=== PATIENT | male | born 1985 | race Two or more races ===

== ENCOUNTER 2019-11-17 12:21 | Emergency (ER) | payer SELFPAY ==
[~2019-11-17] VITALS: Ht 167.6 cm; Wt 63.5 kg
[2019-11-17 12:22] VITALS: BP 121/63
[2019-11-17 14:01] VITALS: BP 100/66
--- NOTE | 2019-11-17 14:59 | Emergency Room Report ---
History of Present Illness General Chief Complaint: Alcohol Intoxication Source: EMS (Kings Muir MD) Present Illness HPI Patient is a 33-year-old male presents after increased altered mental status. Patient has been found lying in the street. Reportedly had recently been drinking alcohol heavily.Patient was brought in by EMS from the street. History is markedly limited by patient's mental status. No known recent trauma. 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 (Kings Muir MD) Patient History Past Medical History: see triage record Reviewed Nursing Documentation: PMH: Agreed; PSxH: Agreed (Kings Muir MD) Nursing Documentation-PMH Past Medical History: Deferred (Kings Muir MD) Review of Systems All Other Systems: negative except mentioned in HPI (Kings Muir MD) Physical Exam Vital Signs Date Time Temp Pulse Resp B/P (MAP) Pulse Ox O2 Delivery O2 Flow Rate FiO2 11/17/19 12:19 97.2 91 19 121/63 (82) 97 Room Air Sp02 EP Interpretation: reviewed, normal General Appearance: normal inspection, well appearing, no apparent distress, alert, GCS 15, non-toxic Head: atraumatic ENT: normal ENT inspection, hearing grossly normal, normal voice Neck: normal inspection, full range of motion, supple, no bony tend Respiratory: normal inspection, lungs clear, normal breath sounds, no respiratory distress, no retraction, no wheezing Cardiovascular #1: regular rate, rhythm, no edema Gastrointestinal: normal inspection, normal bowel sounds, non tender, soft, no guarding, no hernia Genitourinary: no CVA tenderness Musculoskeletal: normal inspection, back normal, normal range of motion Neurologic: alert, responsive, speech normal, normal inspection Psychiatric: normal inspection, judgement/insight normal, mood/affect normal (Kings Muir MD) Medical Decision Making Homeless Attestation Patient has been medically screened and is stable for outpatient follow up (Clement Galindo MD) Diagnostic Impression: Primary Impression: Acute alcoholic intoxication Additional Impression: Substance abuse ER Course Patient presented for altered mental status. Differential diagnosis include was not limited to alcohol tox occasion, overdose, electrolyte abnormality among others. Because of complexity of patient's case laboratory tests and imaging studies were ordered.I do not see any evidence of external trauma on the patient however given the patient's alteration of mental status laboratory testing and further imaging studies were ordered. CT imaging did not show any evidence of acute intracranial pathology. Patient was endorsed to Dr. Galindo pending sobering and (Kings Muir MD) ER Course Assumed care of the patient from the previous provider at approximately 1500. Please refer to initial note for full history and physical exam. Briefly, 33-year-old male brought in for altered mental status. Labs show elevated alcohol and positive urine screen for benzodiazepines and amphetamines. CT scan of the head unremarkable. Labs otherwise within normal limits. He has been monitored in the emergency department for approximately 7 hours. Patient is now awake, alert, ambulating with a steady gait. He has been given something to eat and drink. He is stable for outpatient follow-up. Will provide resources on substance abuse, alcohol abuse and nearby shelters to the patient. Laboratory Tests Test 11/17/19 14:40 11/17/19 15:16 White Blood Count 4.6 K/UL (4.8-10.8) L Red Blood Count 4.34 M/UL (4.70-6.10) L Hemoglobin 13.6 G/DL (14.2-18.0) L Hematocrit 40.4 % (42.0-52.0) L Mean Corpuscular Volume 93 FL (80-99) Mean Corpuscular Hemoglobin 31.4 PG (27.0-31.0) H Mean Corpuscular Hemoglobin Concent 33.7 G/DL (32.0-36.0) Red Cell Distribution Width 14.5 % (11.6-14.8) Platelet Count 215 K/UL (150-450) Mean Platelet Volume 6.3 FL (6.5-10.1) L Neutrophils (%) (Auto) 49.6 % (45.0-75.0) Lymphocytes (%) (Auto) 41.6 % (20.0-45.0) Monocytes (%) (Auto) 5.9 % (1.0-10.0) Eosinophils (%) (Auto) 1.1 % (0.0-3.0) Basophils (%) (Auto) 1.9 % (0.0-2.0) Sodium Level 145 MMOL/L (136-145) Potassium Level 3.7 MMOL/L (3.5-5.1) Chloride Level 106 MMOL/L (98-107) Carbon Dioxide Level 26 MMOL/L (21-32) Anion Gap 13 mmol/L (5-15) Blood Urea Nitrogen 4 mg/dL (7-18) L Creatinine 0.6 MG/DL (0.55-1.30) Estimated Glomerular Filtration Rate > 60 mL/min (>60) Glucose Level 151 MG/DL (74-106) H Calcium Level 8.3 MG/DL (8.5-10.1) L Total Bilirubin 0.4 MG/DL (0.2-1.0) Aspartate Amino Transferase (AST) 60 U/L (15-37) H Alanine Aminotransferase (ALT) 46 U/L (12-78) Alkaline Phosphatase 128 U/L (46-116) H Total Protein 7.4 G/DL (6.4-8.2) Albumin 3.3 G/DL (3.4-5.0) L Globulin 4.1 g/dL Albumin/Globulin Ratio 0.8 (1.0-2.7) L Salicylates Level 0.9 ug/mL (2.8-20) L Acetaminophen Level < 2 MCG/ML (10-30) L Serum Alcohol 352 mg/dL Urine Opiates Screen Negative (NEGATIVE) Urine Barbiturates Screen Negative (NEGATIVE) Phencyclidine (PCP) Screen Negative (NEGATIVE) Urine Amphetamines Screen Positive (NEGATIVE) H Urine Benzodiazepines Screen Positive (NEGATIVE) H Urine Cocaine Screen Negative (NEGATIVE) Urine Marijuana (THC) Screen Negative (NEGATIVE) (Clement Galindo MD) Last Vital Signs Date Time Temp Pulse Resp B/P (MAP) Pulse Ox O2 Delivery O2 Flow Rate FiO2 11/17/19 14:01 90 19 100/66 95 Room Air 11/17/19 12:22 97.2 (Kings Muir MD) Disposition: HOME, SELF-CARE Condition: Stable Scripts Folic Acid* (FOLIC ACID*) 1 Mg Tablet 1 MG ORAL DAILY, #30 TAB Prov: Clement Galindo MD 11/17/19 Thiamine Hcl* (VITAMIN B-1*) 100 Mg Tablet 100 MG ORAL DAILY, #30 TAB 0 Refills Prov: Clement Galindo MD 11/17/19 Referrals: NOT CHOSEN IPA/,REFERRING (PCP) Kings Muir MD Nov 17, 2019 14:59 Clement Galindo MD Nov 17, 2019 16:36
[2019-11-17] MEDS ORDERED: Thiamine HCl 100 MG in D5W 55 ML IVPB ONE (15:00)
--- NOTE | 2019-11-17 15:45 | Diagnostic Imaging Report ---
Indications: 33-year-old male with altered mental status Technique: Spiral acquisitions obtained through the brain. Angled axial and coronal 5 x 5 mm slices were reconstructed. Total dose length product 938 mGycm. CTDI vol(s) 53 mGy. Dose reduction achieved using automated exposure control Comparison: None. Findings: No acute intracranial hemorrhage or edema. No mass effect nor midline shift. There is equivocally some scalp contusion in the high posterior parietal region near the vertex. Normal garcia-white differentiation. Normal size ventricles and extra axial CSF spaces. Intact calvarium. The mastoids are clear. The visualized orbits and sinuses are unremarkable. Impression: Negative for acute intracranial bleed or mass effect Equivocal midline posterior parietal scalp contusion. Correlate with clinical history The CT scanner at [facility] is accredited by the [employer] and the scans are performed using protocols designed to limit radiation exposure to as low as reasonably achievable to attain images of sufficient resolution adequate for diagnostic evaluation.
[2019-11-17 16:06] LABS: ANION GAP 13 mmol/L (5-15); BLOOD UREA NITROGEN 4 mg/dL (7-18); CALCIUM 8.3 MG/DL (8.5-10.1); CARBON DIOXIDE 26 MMOL/L (21-32); CHLORIDE 106 MMOL/L (98-107); CREATININE 0.6 MG/DL (0.55-1.30); POTASSIUM 3.7 MMOL/L (3.5-5.1); SODIUM 145 MMOL/L (136-145)
[2019-11-17 16:09] LABS: BASOPHILS % (AUTO) 1.9 % (0.0-2.0); EOSINOPHILS % (AUTO) 1.1 % (0.0-3.0); HEMATOCRIT 40.4 % (42.0-52.0); HEMOGLOBIN 13.6 G/DL (14.2-18.0); LYMPHOCYTES % (AUTO) 41.6 % (20.0-45.0); MEAN CORPUSCULAR VOLUME 93 FL (80-99); MONOCYTES % (AUTO) 5.9 % (1.0-10.0); NEUTROPHILS % (AUTO) 49.6 % (45.0-75.0); PLATELET COUNT 215 K/UL (150-450); RED BLOOD COUNT 4.34 M/UL (4.70-6.10); RED CELL DISTRIBUTION WIDTH 14.5 % (11.6-14.8); WHITE BLOOD COUNT 4.6 K/UL (4.8-10.8)
[2019-11-17 16:12] LABS: ALANINE AMINOTRANSFERASE 46 U/L (12-78); ALBUMIN 3.3 G/DL (3.4-5.0); ALBUMIN/GLOBULIN RATIO 0.8 (1.0-2.7); ALKALINE PHOSPHATASE 128 U/L (46-116); ASPARTATE AMINO TRANSFERASE 60 U/L (15-37); BILIRUBIN,TOTAL 0.4 MG/DL (0.2-1.0)
[2019-11-17 16:27] VITALS: BP 102/68
[2019-11-17] MEDS ORDERED: FOLIC ACID1 MG ORAL (16:34)
[2019-11-17] MEDS ORDERED: VITAMIN B-1100 MG ORAL (16:34)
[2019-11-17 18:15] VITALS: BP 100/64
[2019-11-17 19:35] VITALS: BP 105/69
== END 2019-11-17 19:35 | disposition home or self-care (01) ==
LOC: EDBD 12:21 → EMR 12:51 → EDBD 12:51 → EMR 19:35
DX: F10.129 Alcohol abuse with intoxication, unspecified (principal); F19.10 Other psychoactive substance abuse, uncomplicated
CPT/HCPCS: 36415; 70450; 80053; 80307; 85025; 96361; 96365; 99284; G0480

== ENCOUNTER 2019-11-19 04:32 | Emergency (ER) | payer SELFPAY ==
[~2019-11-19] VITALS: Ht 170.2 cm; Wt 81.6 kg
[~2019-11-19 04:32] MED LIST: FOLIC ACID1 MG ORAL; VITAMIN B-1100 MG ORAL
[2019-11-19 04:38] VITALS: BP 152/78
--- NOTE | 2019-11-19 04:38 | NUR ---
ED Nurse Note: pt biba from [employer] s/p ETOH intoxication for unknown time and unknown amount. PT aao x 1-2 with slurred speech. Pt HR slightly elevated, ERMD aware. Pt placed in bed in pt gown. ERMD at bedside. Awaiting further orders.
--- NOTE | 2019-11-19 04:44 | Emergency Room Report ---
History of Present Illness General Chief Complaint: To Be Triaged Present Illness HPI 33-year-old homeless male here for suspected intoxication. The patient was seen stumbling on the street and was picked up by paramedics. Patient was here 2 days ago for "altered mental status" where he was found to have highly elevated blood alcohol level and drug screen positive for amphetamines. Patient admits to last drinking earlier tonight. Admits to drinking heavy amount of beer. He is slurring his speech and slow to respond to questions. However he was able to ambulate from the ambulance bay to his bed without much difficulty. Denies drug use. Denies homicidal or suicidal ideation. Patient says he is here because "I need a place to go." Allergies: Coded Allergies: No Known Allergies (Unverified , 11/17/19) COVID-19 Screening Contact w/high risk pt: No Experienced COVID-19 symptoms?: No COVID-19 Testing performed COMPENSATION VICE PRESIDENT: No Review of Systems All Other Systems: negative except mentioned in HPI Physical Exam Vital Signs Date Time Temp Pulse Resp B/P (MAP) Pulse Ox O2 Delivery O2 Flow Rate FiO2 11/19/19 04:28 97.5 106 16 152/78 (102) 98 Room Air Sp02 EP Interpretation: reviewed, normal General Appearance: no apparent distress, alert, GCS 15, non-toxic, other - Disheveled, foul-smelling. Pants soaked in urine Head: normocephalic, other - 2 cm abrasion right forehead Eyes: bilateral eye normal inspection, bilateral eye PERRL ENT: hearing grossly normal, normal pharynx, no angioedema, normal voice Neck: full range of motion, supple/symm/no masses Respiratory: chest non-tender, lungs clear, normal breath sounds, speaking full sentences Cardiovascular #1: regular rate, rhythm, no edema Cardiovascular #2: 2+ carotid (R), 2+ carotid (L), 2+ radial (R), 2+ radial (L) , 2+ dorsalis pedis (R), 2+ dorsalis pedis (L) Gastrointestinal: normal bowel sounds, non tender, soft, non-distended, no guarding, no rebound Rectal: deferred Genitourinary: normal inspection, no CVA tenderness Musculoskeletal: back normal, normal range of motion, calf tenderness, gait/ station normal, non-tender Neurologic: alert, motor strength/tone normal, sensory intact, responsive, speech normal Psychiatric: judgement/insight normal, memory normal, mood/affect normal, no suicidal/homicidal ideation Lymphatic: no adenopathy Medical Decision Making Diagnostic Impression: Primary Impression: Acute alcoholic intoxication Additional Impression: Substance abuse ER Course 33-year-old male, homeless, here for suspected intoxication. Patient was in no acute distress in the emergency department. He said that he "needed a place to go" and claims to be "withdrawing from alcohol." Patient's last drink was only a few hours prior to coming to the emergency department. He had no tremulousness whatsoever on examination and was able to ambulate without much difficulty. He did not show any agitation or any other signs of alcohol withdrawal symptoms. Currently awaiting labs. Given thiamine and folate. He had evidence of an abrasion on his right forehead. CT head unremarkable. Alcohol highly elevated at 334.. Tetanus updated. Patient will be signed out to oncoming physician. Likely will be discharged when clinically sober. Last Vital Signs Date Time Temp Pulse Resp B/P (MAP) Pulse Ox O2 Delivery O2 Flow Rate FiO2 11/19/19 04:28 97.5 106 16 152/78 (102) 98 Room Air Candido Calvin M.D. Nov 19, 2019 04:44
[2019-11-19] MEDS ORDERED: Thiamine 100mg tab ORAL ONE (04:45)
--- NOTE | 2019-11-19 04:50 | NUR ---
ED Nurse Note: blood work drawn and sent to lab. pt stated he is unable to provide urine sample at this time. Will continue to monitor.
[2019-11-19] MEDS ORDERED: Tetanus/Diptheria/Pertussis IM ONE (05:00)
[2019-11-19 05:02] LABS: EOSINOPHILS % (AUTO) 0.6 % (0.0-3.0); HEMOGLOBIN 14.5 G/DL (14.2-18.0); LYMPHOCYTES % (AUTO) 38.3 % (20.0-45.0); MEAN CORPUSCULAR VOLUME 90 FL (80-99); MONOCYTES % (AUTO) 7.5 % (1.0-10.0); NEUTROPHILS % (AUTO) 51.7 % (45.0-75.0); PLATELET COUNT 238 K/UL (150-450); RED BLOOD COUNT 4.68 M/UL (4.70-6.10); RED CELL DISTRIBUTION WIDTH 13.5 % (11.6-14.8); WHITE BLOOD COUNT 5.7 K/UL (4.8-10.8)
--- NOTE | 2019-11-19 05:10 | NUR ---
ED Nurse Note: pt taken to CT in stable condition
[2019-11-19 05:11] LABS: ANION GAP 11 mmol/L (5-15); CARBON DIOXIDE 28 MMOL/L (21-32); CHLORIDE 103 MMOL/L (98-107); CREATININE 0.8 MG/DL (0.55-1.30); POTASSIUM 3.8 MMOL/L (3.5-5.1); SODIUM 142 MMOL/L (136-145)
[2019-11-19 05:16] LABS: ALANINE AMINOTRANSFERASE 44 U/L (12-78); ALBUMIN 3.4 G/DL (3.4-5.0); ALBUMIN/GLOBULIN RATIO 0.8 (1.0-2.7); ALKALINE PHOSPHATASE 148 U/L (46-116); ASPARTATE AMINO TRANSFERASE 51 U/L (15-37); BILIRUBIN,TOTAL 0.4 MG/DL (0.2-1.0); BLOOD UREA NITROGEN 6 mg/dL (7-18); CALCIUM 8.3 MG/DL (8.5-10.1)
--- NOTE | 2019-11-19 05:20 | NUR ---
ED Nurse Note: all medications administered, pt tolerated well no ss of distress noted. will continue to monitor.
--- NOTE | 2019-11-19 05:47 | Diagnostic Imaging Report ---
EXAM: CT Head Without Intravenous Contrast CLINICAL HISTORY: AMS TECHNIQUE: Axial computed tomography images of the head/brain without intravenous contrast. CTDI is 53.40 mGy and DLP is 1125.70 mGy-cm. One or more of the following dose reduction techniques were used: automated exposure control, adjustment of the mA and/or kV according to patient size, use of iterative reconstruction technique. COMPARISON: 11/17/19 FINDINGS: Brain: Unremarkable. No hemorrhage. No significant white matter disease. No edema. Ventricles: Unremarkable. No ventriculomegaly. Bones/joints: Unremarkable. No acute fracture. Soft tissues: Unremarkable. Sinuses: Unremarkable as visualized. No acute sinusitis. Mastoid air cells: Unremarkable as visualized. No mastoid effusion. IMPRESSION: No evidence of acute intracranial process. Paranasal sinuses and mastoids are clear.
[2019-11-19 06:07] VITALS: BP 149/76
--- NOTE | 2019-11-19 06:54 | NUR ---
HAND-OFF: Report given to Missy Tyler.
--- NOTE | 2019-11-19 06:55 | NUR ---
ED Nurse Note: Recieved report from SIM Pal. Patient sleeping, VSS at this time, NAD noted.
[2019-11-19 09:35] VITALS: BP 149/76
--- NOTE | 2019-11-19 09:35 | NUR ---
ED Nurse Note: Pt cleared by health care Provider for discharge. DC instructions/prescription was given and explained to pt and verbalized understanding of teachings. All medical deviecs such as ID band removed. Pt is AAO x4, ambulatory and left with all personal belongings.
== END 2019-11-19 09:35 | disposition home or self-care (01) ==
LOC: EDBD 04:32 → EMR 04:58
DX: F10.129 Alcohol abuse with intoxication, unspecified (principal); F19.10 Other psychoactive substance abuse, uncomplicated; S00.81XA Abrasion of other part of head, initial encounter; X58.XXXA Exposure to other specified factors, initial encounter; Y92.9 Unspecified place or not applicable; Z59.0 Homelessness; Z23 Encounter for immunization
CPT/HCPCS: 36415; 70450; 80053; 85025; 90471; 90715; 99284; G0480